=== PATIENT | female | born 1950 | race Caucasian/White ===

== ENCOUNTER 2018-04-09 00:34 | Outpatient (CLI) | payer BC, SELFPAY ==
--- NOTE | 2018-04-09 16:21 | DI.MAMMO_ITS ---
SYMPTOM/DIAGNOSIS: SCREENING, Z12.31 MAMMOGRAM: Mammograms were interpreted according to the usual protocol including computer analysis with CAD system, tomosynthesis and C view imaging. Comparison with prior examinations. Breast density B. No masses or microcalcifications are seen. There is nothing to suggest malignancy. IMPRESSION: Negative mammogram. Routine screening is recommended. Category I. MQSA ASSESSMENT OF FINDINGS: Negative. Category 1. Patient will receive a letter notifying them of these results. BI-RADS category B. There are scattered areas of fibroglandular density.
== END 2018-04-09 00:54 ==
PROVIDERS: PCP Nurse Practitioner Family; Visit Provider Nurse Practitioner Family
DX: Z12.31 Encounter for screening mammogram for malignant neoplasm of breast (principal)
CPT/HCPCS: 77063; 77067

== ENCOUNTER 2018-05-20 02:07 | Outpatient (CLI) | payer BC, SELFPAY ==
[2018-05-20 10:13] LABS: BUN 13 mg/dL (7-18); CREATININE 0.76 mg/dL (0.55-1.02); Calcium 9.5 mg/dL (8.5-10.1); Chloride 103 mmol/L (98-107); Cholesterol 326 mg/dL (50-200); Glucose 104 mg/dL (70-100); HDL Cholesterol 49 mg/dL (40-60); LDL CHOLESTEROL 206 mg/dL (<100); Potassium 3.8 mmol/L (3.5-5.1); Sodium 141 mmol/L (136-145); Triglyceride 321 mg/dL (30-150)
[2018-05-20 10:32] LABS: FREE T4 0.91 ng/dL (0.76-1.46)
== END 2018-05-20 02:27 ==
PROVIDERS: PCP Nurse Practitioner Family; Visit Provider Nurse Practitioner Family
DX: E03.9 Hypothyroidism, unspecified (principal); E78.5 Hyperlipidemia, unspecified; I10 Essential (primary) hypertension
CPT/HCPCS: 36415; 80048; 80061; 83721; 84439; 84443

== ENCOUNTER 2018-08-18 01:35 | Outpatient (CLI) | payer BC, SELFPAY ==
[2018-08-18 10:00] LABS: FREE T4 1.07 ng/dL (0.76-1.46); TSH 1.23 uIU/mL (0.358-3.74)
== END 2018-08-18 01:55 ==
PROVIDERS: PCP Nurse Practitioner Family; Visit Provider Nurse Practitioner Family
DX: E03.9 Hypothyroidism, unspecified (principal)
CPT/HCPCS: 36415; 84439; 84443

== ENCOUNTER 2019-06-14 12:29 | Outpatient (REF) | payer BC, SELFPAY | END 2019-06-14 12:49 | LOC: LBN 12:29 | PROVIDERS: PCP Nurse Practitioner Family; Visit Provider Obstetrics & Gynecology | DX: L02.214 Cutaneous abscess of groin (principal) | CPT/HCPCS: 87077; 87070; 87186; 87205 ==

== ENCOUNTER 2020-01-17 09:38 | Outpatient (REF) | payer OTHER, SELFPAY ==
--- NOTE | 2020-01-17 07:29 | SKI_PTH ---
PATIENT: Odessa Pineda LOC: [facility] U#:[id number] AGE/SX: 69/F ROOM: RE01/17/[address]: Jean Ford DO : 1950 BED: DIS: 01/17/2020 SPEC #: [id number] RECD: 01/17/20 18:31 STATUS: SERGEI REQ #: [id number] SHANIQUE: 01/17/20 07:[address]: Jean Ford DEPT: Surgical Specimen RECD BY: Suyapa Stuart ENTERED: 01/17/20 18:32 SP TYPE: SKI OTHR DR: TOMMY Craft Tissues: 1 - SKIN BIOPSY(SHAVE/PUNCH) Procedures: SKIN LEVEL 4 Comments: [id number]
== END 2020-01-17 09:58 ==
LOC: LBN 09:38
PROVIDERS: PCP Nurse Practitioner Family; Visit Provider Otolaryngology Otolaryngology/Facial Plastic Surgery
DX: L82.0 Inflamed seborrheic keratosis (principal)
CPT/HCPCS: 88305

== ENCOUNTER 2020-01-19 08:18 | Outpatient (CLI) | payer OTHER, SELFPAY ==
--- NOTE | 2020-01-19 09:45 | DI.RAD_ITS ---
EXAM: XR SHOULDER LT COMPLETE 2+V CLINICAL HISTORY: left shoulder pain. TECHNIQUE: 2D digital imaging was performed. COMPARISON: No exams were available for comparison FINDINGS: BONES: No acute fracture is present. No bony destructive lesion is seen. JOINTS: No dislocation present. SOFT TISSUE: Normal. IMPRESSION: Unremarkable radiographs of the left shoulder. DATA REPOSITORY: RADIATION DOSE DELIVERED:
== END 2020-01-19 08:38 ==
PROVIDERS: PCP Nurse Practitioner Family; Visit Provider Student in an Organized Health Care Education/Training Program
DX: M25.512 Pain in left shoulder (principal); M75.102 Unspecified rotator cuff tear or rupture of left shoulder, not specified as traumatic; M75.22 Bicipital tendinitis, left shoulder; M75.52 Bursitis of left shoulder; I10 Essential (primary) hypertension
CPT/HCPCS: 99204; 99215; 73030

== ENCOUNTER 2020-01-27 00:19 | Outpatient (CLI) | payer OTHER, SELFPAY ==
--- NOTE | 2020-01-27 07:15 | DI.MRI_ITS ---
EXAM: MR UPPER JOINT LT WO CLINICAL HISTORY: PAIN, BURSITIS, TENDINITIS, M75.52, M75.22, M75.102. TECHNIQUE: Multiplanar multisequence MRI was performed. COMPARISON: CR XR SHOULDER LT COMPLETE 2+V from 01/19/2020 FINDINGS: AC joint: No significant spurring. There is some fluid in the AC joint. There is fluid in the suba cromial subdeltoid bursa. There is thickening and high signal in the supraspinatus tendon, consist ent with tendinitis. There may be is small focal tear distally. The infraspinatus, subscapularis, t eres minor and biceps tendons appear intact. No gross labral defects are seen. The marrow signal is normal. There is no significant muscle atrophy. IMPRESSION: Supraspinatus tendonitis and subacromial subdeltoid bursitis. Question of a small focal tear distall y in the supraspinatus tendon. DATA REPOSITORY:
== END 2020-01-27 00:39 ==
PROVIDERS: PCP Nurse Practitioner Family; Visit Provider Student in an Organized Health Care Education/Training Program
DX: M75.22 Bicipital tendinitis, left shoulder (principal); M75.52 Bursitis of left shoulder; M75.82 Other shoulder lesions, left shoulder
CPT/HCPCS: 73221

== ENCOUNTER → 2020-02-02 11:30 | Outpatient (BNVA) | payer OTHER, SELFPAY | PROVIDERS: PCP Nurse Practitioner Family; Referring Provider Nurse Practitioner Family; Visit Provider Student in an Organized Health Care Education/Training Program | DX: M75.52 Bursitis of left shoulder (principal); M75.22 Bicipital tendinitis, left shoulder; M75.102 Unspecified rotator cuff tear or rupture of left shoulder, not specified as traumatic; I10 Essential (primary) hypertension | CPT/HCPCS: 20610; 99214; J1030 ==

== ENCOUNTER → 2020-03-29 09:57 | Outpatient (BNVA) | payer OTHER, SELFPAY | PROVIDERS: PCP Nurse Practitioner Family; Visit Provider Student in an Organized Health Care Education/Training Program | DX: M75.52 Bursitis of left shoulder (principal); M75.22 Bicipital tendinitis, left shoulder; M75.102 Unspecified rotator cuff tear or rupture of left shoulder, not specified as traumatic; I10 Essential (primary) hypertension | CPT/HCPCS: 99214 ==

== ENCOUNTER 2020-04-07 02:30 | Outpatient (CLI) | payer OTHER, SELFPAY ==
[2020-04-07 09:18] LABS: ALT 27 U/L (14-59); AST 19 U/L (15-37); Albumin 4.1 g/dL (3.4-5.0); Alkaline Phosphatase 70 U/L (46-116); Anion Gap 8.9 mmol/L (3-11); BUN 10 mg/dL (7-18); Bilirubin, Total 0.7 mg/dL (0.2-1.0); CO2 28.1 mmol/L (21.0-32.0); CREATININE 0.81 mg/dL (0.55-1.02); Calcium 9.6 mg/dL (8.5-10.1); Chloride 101 mmol/L (98-107); FREE T4 1.38 ng/dL (0.76-1.46); Glucose 109 mg/dL (74-106); Potassium 3.8 mmol/L (3.5-5.1); Sodium 138 mmol/L (136-145); Total Protein 7.1 g/dL (6.4-8.2)
[2020-04-07 09:57] LABS: Vitamin B12 988 pg/mL (193-986)
[2020-04-10 07:05] LABS: Vitamin D 25 Total 34.8 ng/ml (30-100)
== END 2020-04-07 02:50 ==
PROVIDERS: PCP Nurse Practitioner Family; Visit Provider Nurse Practitioner Family
DX: E03.9 Hypothyroidism, unspecified (principal); Z01.818 Encounter for other preprocedural examination
CPT/HCPCS: 36415; 80053; 82306; 82607; 83735; 84439; 84443

== ENCOUNTER → 2020-05-03 09:28 | Outpatient (BNVA) | payer OTHER, SELFPAY | PROVIDERS: PCP Nurse Practitioner Family; Referring Provider Nurse Practitioner Family; Visit Provider Student in an Organized Health Care Education/Training Program | DX: M19.012 Primary osteoarthritis, left shoulder (principal); M75.102 Unspecified rotator cuff tear or rupture of left shoulder, not specified as traumatic; M75.22 Bicipital tendinitis, left shoulder; M75.52 Bursitis of left shoulder; I10 Essential (primary) hypertension | CPT/HCPCS: 99214 ==

== ENCOUNTER 2020-05-15 00:38 | Outpatient (CLI) | payer OTHER, SELFPAY ==
--- NOTE | 2020-05-15 16:23 | DI.MAMMO_ITS ---
EXAM: MAMMO SCREENING CLINICAL HISTORY: screening,Z12.39 TECHNIQUE: Mammograms were interpreted according to the usual protocol including computer analysis w [employer] CAD system, tomosynthesis and C-view imaging. COMPARISON: FINDINGS: The breasts are moderate density with fairly symmetrical distribution of fibroglandular tissue. No d ominant mass or clumped microcalcification is identified in either breast. The current examination i s compared with previous examinations including March 2018 and there has been no gross interval c hange in appearance in comparison with the prior studies. IMPRESSION: No specific evidence of malignancy at this time. Routine screening examinations are suggested at ye connie intervals in this age group according to the ACS ACR guidelines. BI-RADS Cat 1 - Negative Breast Density - Category B - Scattered areas of fibroglandular density
== END 2020-05-15 00:58 ==
PROVIDERS: PCP Nurse Practitioner Family; Visit Provider Nurse Practitioner Family
DX: Z12.31 Encounter for screening mammogram for malignant neoplasm of breast (principal)
CPT/HCPCS: 77063; 77067

== ENCOUNTER 2020-05-22 07:23 | Outpatient (CLI) | payer OTHER, SELFPAY ==
[2020-05-24 08:12] LABS: SARS-CoV-2 RNA Not Detected (NotDetected); SARS-CoV-2 RNA Source Nasal/Nares
== END 2020-05-22 07:43 ==
PROVIDERS: PCP Nurse Practitioner Family; Visit Provider Student in an Organized Health Care Education/Training Program
DX: Z11.59 Encounter for screening for other viral diseases (principal); Z01.818 Encounter for other preprocedural examination
CPT/HCPCS: U0003

== ENCOUNTER 2020-05-25 06:08 | Day surgery (SDC) | payer OTHER, SELFPAY ==
[2020-05-25] VITALS (9 sets, daily range): BP systolic 103–164; BP diastolic 55–106; PULSE 71–85; RESP 12–18; TEMP 36.1–36.5; O2SAT 92–99
[2020-05-25] MEDS: Lactated Ringers 1,000 ML 100 ML IV (06:57)
[2020-05-25] MEDS: Bupivacaine 0.5% Pres-Free 30 ML VIAL (07:25)
[2020-05-25] MEDS: Bupivacaine LIPOSOME/PF 133 MG/10 ML VIAL IJ (07:25)
[2020-05-25] MEDS: ceFAZolin 2 GM/50 ML BAG IVPB (08:25)
[2020-05-25] MEDS: EPINEPHrine 30 MG/30 ML VIAL (09:54)
[2020-05-25] MEDS: Bupivacaine 0.25% Pres-Free 30 ML VIAL (09:55)
--- NOTE | 2020-05-25 10:33 | PDOC.DSDIS_ITS ---
Discharge Plan Disposition Patient Disposition: HOME Condition: Stable Discharge Details Reason For Visit: Left shoulder surgery Attending Provider: Veto Waite Primary Care Provider: Ingris Robbins Home Meds and New Rx's Prescriptions: New ibuprofen 800 mg tablet 800 mg PO BID PRN (Reason: pain, moderate) Qty: 60 RF: 0 aspirin 81 mg tablet,delayed release (DR/EC) 81 mg PO DAILY 14 Days Qty: 14 RF: 0 tramadol 50 mg Tablet 50 mg PO Q8H PRN PRN (Reason: severe pain) Qty: 22 RF: 0 ondansetron 4 mg tablet,disintegrating 4 mg PO Q6H PRN (Reason: nausea or vomiting) Qty: 5 RF: 0 Continued Magnesium (oxide/AA chelate) 300 MG capsule 300 mg PO QPM RF: 0 lcdqcsex-jsks-zqgcmd-hyalur ac 1 EACH capsule 1 ea PO DAILY RF: 0 CALCIUM 600 + D TABLET 1 EACH tablet 1 ea PO DAILY RF: 0 omega-3 acid ethyl esters [Lovaza] 1 gram capsule 3 cap PO DAILY Qty: 360 RF: 4 levothyroxine 100 mcg capsule 100 mcg PO DAILY Qty: 90 RF: 4 lisinopril 5 mg tablet 5 mg PO DAILY Qty: 90 RF: 4 ascorbate calcium (vitamin C) 500 mg tablet 2 g PO DAILY RF: 0 zolpidem 5 mg tablet 5 mg PO QHS PRN (Reason: insomnia) Qty: 30 RF: 0 Discharge Instructions Additional Instructions: Surgery: Shoulder arthroscopy with rotator cuff repair, biceps tenodesis, extensive debridement, subacromial decompression, and distal clavicle excision Activity: You should keep your arm at your side in a neutral position at all times except for physical therapy. Do not try to lift or raise your arm using your own muscles. You should use the sling whenever you are out of the house. You may have to adjust the abduction pillow or remove it for comfort. At home it is best to remove the sling and rest the arm on a pillow at your side or support the operative side with your other hand. You may allow the arm to dangle at your side. A physical therapy prescription will be sent electronically to begin in about 2 weeks. Prescriptions: Aspirin 81 mg take 1 daily to prevent a blood clot for 2 weeks Ibuprofen 800 mg take 1 every 12 hours with a meal as needed for moderate pain Tramadol 50 mg take 1 every 6-8 hours as needed for severe pain You may use qata-[id number]-vkplufn Tylenol (acetaminophen) as needed for mild pain. These pain medications may be taken all at once or in different combinations as needed. Ondansetron (Zofran) 4 mg take 1 orally dissolving tablet every 6 hours as needed for nausea or vomiting Also, recommend Colace (docusate) as a stool softener as surgery and pain medicine cause constipation. Dressings: Remove shoulder bandage after 3 days. Leave the sticky Steri-Strips in place until they fall off or remove them after you shower. Cover the incisions with Band-Aids or leave them open to air. the biceps bandage (inside upper arm) is glued on separately. You may leave this one on a few days longer if it is difficult to remove. There is also glue underneath this bandage that can be left in place until it peels off. You may shower after 5 days. Follow-up: 10-[address] Waite You may take off the leg compression stockings this evening at home. You may also leave them on a few days longer if you have a history of leg swelling or edema. Let us know right away if you develop any redness, drainage, fevers, chest pain, or trouble breathing. Do not drink alcohol or drive for at least 24 hours after anesthesia. Please call the office during business hours with any questions or concerns. Referrals: Veto Waite MD [ [facility] STAFF PHYSICIAN] - Discharge Orders Discharge Orders: Discharge Order (Routine); Ordered 05/25/20 Ordered By: Veto Waite DS: Diagnosis Discharge Diagnosis (1) Left rotator cuff tear: Status: Acute (2) Tendinitis of long head of biceps brachii of left shoulder: Status: Acute (3) Bursitis of left shoulder: Status: Acute (4) Arthritis of left acromioclavicular joint: Status: Acute
--- NOTE | 2020-05-25 10:41 | ROE_ITS ---
Date of service: 05/25/20 Time of Service: 10:33 Operative Note Operative Note DATE OF PROCEDURE: 05/25/20 PRE-OP DIAGNOSIS: Left: 1. Rotator cuff tear 2. LHB tendinopathy 3. Bursitis 4. ACJ arthritis POST-OP DIAGNOSIS: same PROCEDURE: Left: 1. Rotator cuff repair, CPT# 93324. This involved repair of the supraspinatus using anchor and suture to reattach the rotator cuff back to the footprint of the greater tuberosity. 2. Open biceps tenodesis, CPT# 50495. This involved reattaching the long head of the biceps tendon to the proximal humerus in the sub-pectoral area of the bicipital groove at the correct tension. 3. Extensive debridement, CPT# 11220. This involved using arthroscopic hand instruments, power instruments, and radiofrequency instruments to release to release the long head of the biceps tendon and debride areas of labral tearing, synovitis, Poth complex/MGHL, and partial leading edge anterior supraspinatus fraying, and mild humeral head cartilage fraying within the glenohumeral joint anteriorly, superiorly and posteriorly. 4. Subacromial decompression with partial acromioplasty, CPT# 00287. This involved using arthroscopic power instruments and a radiofrequency wand to complete a bursectomy and remove bone spurs on the undersurface of the acromion. 5. Arthroscopic distal clavicle excision, CPT# 55967. This involved arthroscopically exposing the underside of the acromioclavicular joint, smoothing out bone spurs, and using a rigo to remove approximately 5 mm of the distal clavicle so there was no bone left engaging the acromion. The assistant corporation counsel was medically required in order to help assist in techniques above, which require positioning the arm, holding the arthroscope, and manipulating multiple instruments and sutures at the same time. This cannot be done without the help of an experienced assistant corporation counsel. SURGEON: Veto Waite IN [employer]ORE MARKETING ASSOCIATE: Gloria Zaman ANESTHESIA: GETA and regional ESTIMATED BLOOD LOSS: 5 PATHOLOGY: none sent Patient was transported to: PACU Patient's condition: stable Implants: Arthrex: 4.75mm SwiveLocks x 1 and unicortical Proximal Biceps Tenodesis Button Indications: The patient was diagnosed with the above conditions and appropriately indicated for surgical intervention. Please see complete medical record for details. Findings: Exam under anesthesia: Nearly full range of motion with approximately 10 to 15 degree limit to forward elevation, which was easily correctable with gentle steady pressure manipulation achieving a nice release. Glenohumeral joint: Generalized grade 1-2 cartilage softening and fraying partial-thickness throughout. Significant anterior synovitis and long head the biceps injection. Superior labral SLAP tear with Poth complex anterior labrum/[facility] L variant. Intact subscapularis. Mild anterior most leading edge supraspinatus fraying without any significant PASTA lesion. Subacromial space: Mild bursitis. Mild subacromial bone spur. Moderate impinging inferior most distal clavicle acromion. Largely intact rotator cuff with fraying and nearly full-thickness tear after debriding the lateral most footprint and gentle probing approximately 1 x 1 cm of the midportion of the supraspinatus. Intact infraspinatus. Procedure Description: In the operating room, general anesthesia was induced. Bilateral shoulders were examined. The patient was positioned in the beachchair position. All bony prominences were well-padded. Preoperative antibiotics were administered. The shoulder was prepped and draped in the usual sterile fashion. The correct patient, procedure, and side of the procedure were all verified prior to incision. Starting through the posterior portal a standard complete diagnostic arthroscopy was performed of the glenohumeral joint including inspection of the long head of the biceps, anterior and superior labrum, subscapularis tendon, supraspinatus and infraspinatus tendons, and axillary recess. The glenoid and humeral head cartilage as well as the posterior labrum were inspected from an anterior viewing portal. Significant findings and interventions noted above. The biceps tendon was released from the superior labrum using arthroscopic scissors. Starting through the posterior portal, the arthroscope was directed into the subacromial space. A lateral 50 yard line lateral portal was created. A combination of power instruments and a radiofrequency ablator were used to debride bursitis anteriorly, posteriorly, and laterally as well as expose and smooth bone spurring on the undersurface of the acromion. The coracoacromial ligament was partially released. The bursectomy was completed viewing laterally and working from posteriorly and the rotator cuff was thoroughly inspected with findings noted above. The anterior portal was redirected towards the undersurface of the AC joint. A shaver and electrocautery device were used to clear soft tissue from the undersurface of the AC joint. A rigo was then inserted and used to remove the distalmost 5 mm of the engaging inferior distal clavicle. Care was taken to alternate between working through the anterior portal and viewing through the anterior portal to ensure that proper amount of bone was removed and there was no engaging bone left behind especially superiorly. Cannulas were inserted at the superior posterior lateral margin of the acromion as well as at the lateral 50 yard line portal. The rotator cuff tear was inspected and debrided of frayed tissue at the lateral greater tuberosity middle supraspinatus margin exposing a nearly full-thickness small supraspinatus tear. The greater was tuberosity cleared of fibrous tissue over the footprint, the bone lightly abraded, and the bursectomy was extended laterally. Rotator cuff retriever was used to confirm appropriate tissue and reduction in mobility. A self retrieving suture passer was used to pass a fiber tape suture in an inverted horizontal mattress medial to the exposed tear while maintaining the articular most intact supraspinatus fibers. A punch was used to localize placement the individual lateral row anchor. The rotator cuff tear was provisionally reduced taking care not to over tension the repair, and the anchor was inserted into the bone completing the repair. The rotator cuff and fixation were inspected through shoulder range of motion and found to be stable and secure. The shoulder was drained of arthroscopic fluid. 10 cc of 0.5% bupivacaine with epinephrine was infiltrated about a 2 to 3 cm longitudinal incision at the inferior margin of the pectoralis major localized over the long head of the biceps tendon. Blunt and sharp dissection were used to expose the tendon in the bicipital groove. The tendon was brought out of the wound and kept off the skin on top of a blue towel. The correct location for sub-pectoral fixation was localized, prepped with a rasp, and then drilled with a 3.2 mm drill pin in a unicortical fashion. Using a fiber loop suture the tendon was prepped from the musculotendinous junction a few centimeters proximal. The excess tendon was amputated. The free suture ends were then passed through the unicortical button implant. The drill pin was removed and the implant was placed into the humeral intramedullary canal. The button was flipped and the sutures were tensioned bringing the tendon down to bone. Tension and fixation were then tested and found to be appropriate. A free nee dle was used to pass suture through the tendon and the free ends of the suture were were tied compressing tendon to bone. The wound was copiously irrigated with normal saline. Subcutaneous tissue was closed using 3-0 Monocryl in a buried interrupted fashion. Skin was closed using 3-0 Monocryl in a buried subcuticular running fashion. Skin glue was applied over the incision. Mastisol was applied about the incision. The incision was covered with Telfa, gauze, and covered with a Tegaderm dressing. All portal sites were copiously irrigated. These incisions were closed using 3- 0 Monocryl in a buried fashion, covered with Mastisol, Steri-Strips, Xeroform, dry gauze, and ABDs. The dressings were covered and secured with Medipore tape. The operative extremity was placed into a sling for immobilization. The patient awoke from anesthesia without complication and was transferred to the recovery room in a stable condition.
== END 2020-05-25 13:31 | disposition home or self-care (01) ==
PROVIDERS: PCP Nurse Practitioner Family; Visit Provider Student in an Organized Health Care Education/Training Program
PROC: (CPT 29805; principal; 2020-05-25 07:30)
PROC: (CPT 23430; 2020-05-25 07:30)
PROC: (CPT 29824; 2020-05-25 07:30)
DX: M75.102 Unspecified rotator cuff tear or rupture of left shoulder, not specified as traumatic (principal); M75.22 Bicipital tendinitis, left shoulder; M19.012 Primary osteoarthritis, left shoulder; I10 Essential (primary) hypertension
CPT/HCPCS: 29827; 23430; 29823; 29826; 29824; 76942; L3670; J0131; J0690; J1100; J1885; J2001; J2250; J2370; J2405; J2704; L3650

== ENCOUNTER → 2020-06-06 10:41 | Outpatient (BNVA) | payer OTHER, SELFPAY | PROVIDERS: PCP Nurse Practitioner Family; Referring Provider Nurse Practitioner Family; Visit Provider Student in an Organized Health Care Education/Training Program | DX: Z47.89 Encounter for other orthopedic aftercare (principal); M19.012 Primary osteoarthritis, left shoulder; M75.22 Bicipital tendinitis, left shoulder; M75.52 Bursitis of left shoulder ==

== ENCOUNTER → 2020-07-12 10:27 | Outpatient (BNVA) | payer OTHER, SELFPAY | PROVIDERS: PCP Nurse Practitioner Family; Visit Provider Student in an Organized Health Care Education/Training Program | DX: Z47.89 Encounter for other orthopedic aftercare (principal); M19.012 Primary osteoarthritis, left shoulder; M75.22 Bicipital tendinitis, left shoulder; M75.52 Bursitis of left shoulder; I10 Essential (primary) hypertension ==

== ENCOUNTER → 2020-08-30 08:57 | Outpatient (BNVA) | payer MEDICARE, SELFPAY | PROVIDERS: PCP Nurse Practitioner Family; Referring Provider Nurse Practitioner Family; Visit Provider Student in an Organized Health Care Education/Training Program | DX: Z47.89 Encounter for other orthopedic aftercare (principal); M19.012 Primary osteoarthritis, left shoulder; M75.22 Bicipital tendinitis, left shoulder; M75.52 Bursitis of left shoulder | CPT/HCPCS: 99213 ==

== ENCOUNTER 2020-10-11 04:24 | Outpatient (CLI) | payer MEDICARE, SELFPAY ==
[2020-10-11 08:54] LABS: Hemoglobin A1C 5.5 % (<5.7)
[2020-10-11 09:17] LABS: Calculated LDL 182 mg/dL (<100); Cholesterol 294 mg/dL (<200); HDL Cholesterol 48 mg/dL (40-60); Triglyceride 320 mg/dL (<150)
== END 2020-10-11 04:25 | disposition home or self-care (01) ==
PROVIDERS: PCP Nurse Practitioner Family; Visit Provider Nurse Practitioner Family
DX: E78.5 Hyperlipidemia, unspecified (principal); R73.03 Prediabetes
CPT/HCPCS: 36415; 80061; 83036

== ENCOUNTER 2021-04-05 13:02 | Outpatient (CLI) | payer MEDICARE, SELFPAY ==
--- NOTE | 2021-04-05 13:00 | RT.EKG_ITS ---
APPROVED REPORT Exam: Resting ECG Reason for Exam: pre op Patient Location: O HR:72 bpm ECG Measurements Heart Rate 72 AXIS IA 155 P 108 QRSd 99 QRS -24 QT 408 T -7 QTc 447 Conclusion Sinus rhythm...normal P axis, V-rate 60- 99 Inc RBBB
== END 2021-04-05 13:03 | disposition home or self-care (01) ==
LOC: DI.CM 13:04
PROVIDERS: PCP Nurse Practitioner Family; Visit Provider Nurse Practitioner Family
DX: Z01.818 Encounter for other preprocedural examination (principal)
CPT/HCPCS: 93010

== ENCOUNTER 2021-07-26 04:24 | Outpatient (CLI) | payer MEDICARE, SELFPAY ==
[2021-07-26 13:41] LABS: Anion Gap 8.7 mmol/L (3-11); BUN 17 mg/dL (7-18); CO2 28.3 mmol/L (21.0-32.0); CREATININE 0.8 mg/dL (0.55-1.02); Calcium 9.5 mg/dL (8.5-10.1); Chloride 103 mmol/L (98-107); FREE T4 1.23 ng/dL (0.76-1.46); Glucose 104 mg/dL (74-106); Potassium 3.8 mmol/L (3.5-5.1); Sodium 140 mmol/L (136-145); TSH 0.47 uIU/mL (0.36-3.74)
== END 2021-07-26 04:25 | disposition home or self-care (01) ==
LOC: LBO 04:24
PROVIDERS: PCP Nurse Practitioner Family; Visit Provider Nurse Practitioner Family
DX: E03.8 Other specified hypothyroidism (principal)
CPT/HCPCS: 36415; 80048; 84439; 84443

== ENCOUNTER 2022-03-26 11:43 | Outpatient (CLI) | payer MEDICARE, SELFPAY ==
--- NOTE | 2022-03-26 11:15 | DI.RAD_ITS ---
Exam(s) XR SHOULDER LT COMPLETE 2+V EXAM: XR SHOULDER LT COMPLETE 2+V CLINICAL HISTORY: LEFT SHOULDER. TECHNIQUE: 2D digital imaging was performed of the left shoulder. Three images were obtained. AP, Y-view and axillary views were obtained. COMPARISON: CR XR SHOULDER LT COMPLETE 2+V from 01/19/2020 FINDINGS: BONES: No acute fracture is present. No bony destructive lesion is seen. There are postsurgical weiss es seen in the proximal humerus. JOINTS: No dislocation present. Mild degenerative changes are seen at the acromioclavicular joint. SOFT TISSUE: Normal. IMPRESSION: No acute abnormality. Postsurgical and degenerative changes in the shoulder. DATA REPOSITORY: RADIATION DOSE DELIVERED:
--- NOTE | 2022-03-26 11:15 | DI.RAD_ITS ---
Exam(s) XR SHOULDER RT COMPLETE 2+V EXAM: XR SHOULDER RT COMPLETE 2+V CLINICAL HISTORY: right shoulder f/u. TECHNIQUE: 2D digital imaging was performed of the right shoulder. Three images were obtained. AP, Y-view and axillary views were obtained. COMPARISON: No exams were available for comparison FINDINGS: BONES: No acute fracture is present. No bony destructive lesion is seen. Postsurgical changes are see n in the proximal right humerus. JOINTS: No dislocation present. Mild degenerative changes are seen at the glenohumeral joint with spu rring seen at both the inferior humeral head and glenoid. SOFT TISSUE: Normal. IMPRESSION: Degenerative and postsurgical changes of the right shoulder. DATA REPOSITORY: RADIATION DOSE DELIVERED:
== END 2022-03-26 11:44 | disposition home or self-care (01) ==
LOC: DIORS 11:43
PROVIDERS: PCP Nurse Practitioner Family; Referring Provider Nurse Practitioner Family; Visit Provider Student in an Organized Health Care Education/Training Program
DX: M75.102 Unspecified rotator cuff tear or rupture of left shoulder, not specified as traumatic (principal); Z98.890 Other specified postprocedural states
CPT/HCPCS: 99214; 73030

== ENCOUNTER → 2022-05-28 10:23 | Outpatient (BNVA) | payer MEDICARE, SELFPAY | PROVIDERS: PCP Nurse Practitioner Family; Referring Provider Nurse Practitioner Family; Visit Provider Student in an Organized Health Care Education/Training Program | DX: M75.102 Unspecified rotator cuff tear or rupture of left shoulder, not specified as traumatic (principal); Z98.890 Other specified postprocedural states | CPT/HCPCS: 99214 ==

== ENCOUNTER → 2022-06-05 01:58 | Outpatient (CLI) | payer MEDICARE, SELFPAY ==
--- NOTE | 2022-06-05 13:05 | DI.MAMMO_ITS ---
Exam(s) MAMMO SCREENING EXAM: MAMMO SCREENING CLINICAL HISTORY: screening,Z12.39 TECHNIQUE: Mammograms were interpreted according to the usual protocol including computer analysis w [employer] CAD system, tomosynthesis and C-view imaging. COMPARISON: 2012 through 2019 FINDINGS: The breasts are composed of scattered fibroglandular densities, Breast Density category B. No suspicious masses or suspicious microcalcifications are seen. No skin thickening or abnormal axillary lymph nodes are seen. There has been no significant change from prior exams. IMPRESSION: BI-RADS Category 1, Negative mammogram Yearly screening mammography is recommended. Breast Density - Category B, scattered fibroglandular densities. A negative radiographic report should not delay biopsy if a dominant or clinically suspicious mass is present. Up to ten percent of cancers are not identified on mammography. A negative report may reinforce clinical impression. Adenosis and dense breasts may obscure an underlying neoplasm. False positive reports average 6 to 10%. Patient will receive a letter notifying them of these results.
== END ==
PROVIDERS: PCP Nurse Practitioner Family; Visit Provider Nurse Practitioner Family
DX: Z12.31 Encounter for screening mammogram for malignant neoplasm of breast (principal)
CPT/HCPCS: 77063; 77067

== ENCOUNTER 2022-07-17 02:32 | Outpatient (CLI) | payer MEDICARE, SELFPAY ==
[2022-07-17 08:27] LABS: HCT 42.4 % (36.0-46.0); MCH 32.1 pg (27.0-33.0); MCHC 35.4 % (32.0-36.0); MCV 91 fL (80-95); MPV 9.4 fL (8.0-11.0); Neutrophils % 51.7; Platelet Count 222 10^3/uL (130-400); RBC 4.67 10^6/uL (3.93-5.22); RDW 12.2 % (11.7-14.6); RDW-SD 40.7 fL; WBC 8.95 10^3/uL (4.4-10.8)
[2022-07-17 08:28] LABS: Abs Immature Grans 0.12 10^3/uL (0.0-0.06); Absolute Basophil Count 0.06 10^3/uL (0.0-0.2); Absolute Eosinophil Count 0.15 10^3/uL (0.0-0.7); Absolute Lymphocyte Count 3.42 10^3/uL (1.2-3.4); Absolute Monocyte Count 0.57 10^3/uL (0.1-0.8); Absolute Neutrophil Count 4.63 10^3/uL (1.2-6.7); Basophils % 0.7; Eosinophils % 1.7; Immature Grans % 1.3; Lymphocytes % 38.2; Monocytes % 6.4
[2022-07-17 09:51] LABS: Anion Gap 8.4 mmol/L (3-11); BUN 13 mg/dL (7-18); CO2 28.6 mmol/L (21.0-32.0); CREATININE 0.9 mg/dL (0.55-1.02); Calcium 9.4 mg/dL (8.5-10.1); Chloride 102 mmol/L (98-107); Estimated GFR 68.35 (mL/min/1.73m2); FREE T4 1.04 ng/dL (0.76-1.46); Glucose 114 mg/dL (74-106); Potassium 3.7 mmol/L (3.5-5.1); Sodium 139 mmol/L (136-145); TSH 3.06 uIU/mL (0.36-3.74)
[2022-07-17 10:29] LABS: Cholesterol 349 mg/dL (<200); Ferritin 114 ng/mL (8-252); HDL Cholesterol 56 mg/dL (40-60); Triglyceride 404 mg/dL (<150); Vitamin B12 675 pg/mL (193-986)
[2022-07-17 10:40] LABS: LDL CHOLESTEROL 179 mg/dL (<100)
== END 2022-07-17 02:33 | disposition home or self-care (01) ==
PROVIDERS: PCP Nurse Practitioner Family; Visit Provider Nurse Practitioner Family
DX: E03.8 Other specified hypothyroidism (principal); E06.3 Autoimmune thyroiditis; E78.2 Mixed hyperlipidemia; D64.9 Anemia, unspecified; G47.00 Insomnia, unspecified; F41.8 Other specified anxiety disorders; I10 Essential (primary) hypertension; Z79.899 Other long term (current) drug therapy
CPT/HCPCS: 36415; 80048; 80061; 83721; 82607; 82728; 84439; 84443; 85025

== ENCOUNTER 2023-07-08 02:48 | Outpatient (CLI) | payer MEDICARE, SELFPAY ==
[2023-07-08 10:41] LABS: BUN 15 mg/dL (7-18); CREATININE 0.9 mg/dL (0.55-1.02); Calcium 9.6 mg/dL (8.5-10.1); Chloride 102 mmol/L (98-107); Estimated GFR 67.92 (mL/min/1.73m2); Glucose 111 mg/dL (74-106); Potassium 3.5 mmol/L (3.5-5.1); Sodium 139 mmol/L (136-145); TSH (W/Ref FT4) 2.56 uIU/mL (0.36-3.74)
== END 2023-07-08 02:49 | disposition home or self-care (01) ==
LOC: LBO 02:48
PROVIDERS: PCP Nurse Practitioner Family; Visit Provider Nurse Practitioner Family
DX: Z00.00 Encounter for general adult medical examination without abnormal findings (principal); E03.9 Hypothyroidism, unspecified
CPT/HCPCS: 36415; 80048; 84443

== ENCOUNTER 2023-11-14 11:29 | Outpatient (CLI) | payer MEDICARE, SELFPAY ==
--- NOTE | 2023-11-14 11:15 | RT.EKG_ITS ---
APPROVED REPORT Exam: Resting ECG Reason for Exam: intermittent SOB Patient Location: O HR:72 bpm ECG Measurements Heart Rate 72 AXIS MN 148 P 37 QRSd 99 QRS -49 QT 403 T 14 QTc 442 Conclusion Sinus arrhythmia...V-rate 68- 79, variation>10% Ventricular premature complex...V complex w/ short R-R interval Probable left atrial enlargement...P >50mS, <-0.10mV V1 LAD, consider left anterior fascicular block...axis(240,-40), S>R II III aVF Baseline wander in lead(s) V5,V6
--- NOTE | 2023-11-14 11:30 | RT.EKG_ITS ---
APPROVED REPORT Exam: Resting ECG Reason for Exam: c/o periodic SOB Patient Location: O HR:68 bpm ECG Measurements Heart Rate 68 AXIS NV 158 P 42 QRSd 96 QRS -55 QT 413 T 14 QTc 440 Conclusion Sinus rhythm...normal P axis, V-rate 50- 99 LAD, consider left anterior fascicular block...axis(240,-40), S>R II III aVF Baseline wander in lead(s) V5
== END 2023-11-14 11:30 | disposition home or self-care (01) ==
PROVIDERS: PCP Nurse Practitioner Family; Visit Provider Nurse Practitioner Family
DX: R06.02 Shortness of breath (principal)
CPT/HCPCS: 93010

== ENCOUNTER → 2023-11-19 02:44 | Outpatient (CLI) | payer MEDICARE, SELFPAY ==
--- NOTE | 2023-11-19 07:30 | DI.RAD_ITS ---
Exam(s) XR CHEST 2V PA LATERAL EXAM: XR CHEST 2V PA LATERAL CLINICAL HISTORY: SOB,r06.02. TECHNIQUE: 2D digital imaging was performed. COMPARISON: No exams were available for comparison FINDINGS: 2 views: Heart size is normal. The mediastinum is not widened. Lungs are clear. No infiltrates nor pleural effusions. IMPRESSION: No acute pulmonary findings. DATA REPOSITORY: RADIATION DOSE DELIVERED:
== END ==
PROVIDERS: PCP Nurse Practitioner Family; Visit Provider Nurse Practitioner Family
DX: R06.02 Shortness of breath (principal)
CPT/HCPCS: 71046

== ENCOUNTER 2023-11-27 01:18 | Outpatient (CLI) | payer MEDICARE, SELFPAY ==
[2023-11-27 11:16] LABS: Abs Immature Grans 0.04 10^3/uL (0.0-0.06); Absolute Basophil Count 0.06 10^3/uL (0.0-0.2); Absolute Eosinophil Count 0.17 10^3/uL (0.0-0.7); Absolute Lymphocyte Count 2.36 10^3/uL (1.2-3.4); Absolute Monocyte Count 0.36 10^3/uL (0.1-0.8); Basophils % 0.8 %; Eosinophils % 2.3 %; HGB 14.8 g/dL (11.2-15.7); Immature Grans % 0.5 %; Lymphocytes % 31.5 %; MCH 32.5 pg (27.0-33.0); MCHC 34.4 % (32.0-36.0); MCV 95 fL (80-95); MPV 9.6 fL (8.0-11.0); Monocytes % 4.8 %; Neutrophils % 60.1 %; Platelet Count 231 10^3/uL (130-400); RBC 4.55 10^6/uL (3.93-5.22); RDW 12.3 % (11.7-14.6); RDW-SD 43.2 fL; WBC 7.49 10^3/uL (4.4-10.8)
[2023-11-27 11:37] LABS: ALT 24 U/L (14-59); AST 22 U/L (15-37); Albumin 4.1 g/dL (3.4-5.0); Alkaline Phosphatase 66 U/L (46-116); BUN 16 mg/dL (7-18); Bilirubin, Total 0.8 mg/dL (0.2-1.0); CREATININE 0.9 mg/dL (0.55-1.02); Calcium 9.4 mg/dL (8.5-10.1); Calculated LDL 210 mg/dL (<100); Chloride 103 mmol/L (98-107); Cholesterol 312 mg/dL (<200); Glucose 99 mg/dL (74-106); HDL Cholesterol 66 mg/dL (40-60); Potassium 3.9 mmol/L (3.5-5.1); Sodium 141 mmol/L (136-145); TSH (W/Ref FT4) 2.88 uIU/mL (0.36-3.74); Total Protein 7.3 g/dL (6.4-8.2); Triglyceride 183 mg/dL (<150)
[2023-11-27 11:40] LABS: Hemoglobin A1C 5.6 % (<5.7)
[2023-11-27 21:01] LABS: Hepatitis C Ab w Rflx HCV PCR Negative (Negative)
== END 2023-11-27 01:19 | disposition home or self-care (01) ==
LOC: LBO 01:18
PROVIDERS: PCP Nurse Practitioner Family; Visit Provider Nurse Practitioner Family
DX: R73.01 Impaired fasting glucose (principal); R06.02 Shortness of breath; E78.5 Hyperlipidemia, unspecified; E03.9 Hypothyroidism, unspecified
CPT/HCPCS: 36415; 80053; 80061; 86803; 83036; 84443; 85025

== ENCOUNTER 2023-12-22 12:42 | Outpatient (REF) | payer MEDICARE, SELFPAY ==
[2023-12-22 15:52] LABS: Bilirubin Negative (Negative); Blood Negative (Negative); Clarity Clear (Clear); Glucose Negative (Negative); Ketones Negative (Negative); Leukocyte Esterase Negative (Negative); Nitrite Negative (Negative); Urobilinogen 0.2 mg/dL (Up to 0.2)
== END 2023-12-22 12:43 | disposition home or self-care (01) ==
LOC: LBN 12:42
PROVIDERS: PCP Nurse Practitioner Family; Visit Provider Nurse Practitioner Family
DX: N30.90 Cystitis, unspecified without hematuria (principal)
CPT/HCPCS: 81003

== ENCOUNTER 2024-03-31 18:32 | Outpatient (REF) | payer MEDICARE, SELFPAY ==
[2024-03-31 13:53] LABS: Bilirubin Negative (Negative); Blood Small (Negative); Clarity Sl Cloudy (Clear); Glucose Negative (Negative); Ketones Negative (Negative); Leukocyte Esterase Negative (Negative); Nitrite Negative (Negative); Urobilinogen 0.2 mg/dL (Up to 0.2)
[2024-03-31 14:11] LABS: Bacteria Rare HPF (Negative); C & S Indicated? C&S Done As Ordered; Casts Negative LPF (Negative); Crystals Negative HPF (Negative); Epithelial Cells Rare HPF (Negative); Mucus Trace (Negative); WBC 0-2 HPF (0-5)
== END 2024-03-31 18:33 | disposition home or self-care (01) ==
LOC: LBN 18:32
PROVIDERS: PCP Nurse Practitioner Family; Visit Provider Nurse Practitioner Family
DX: N30.90 Cystitis, unspecified without hematuria (principal); R30.0 Dysuria
CPT/HCPCS: 81003; 81015; 87086

== ENCOUNTER 2024-04-13 10:38 | Outpatient (REF) | payer MEDICARE, SELFPAY ==
[2024-04-13 13:18] LABS: Bilirubin Negative (Negative); Blood Small (Negative); Clarity Clear (Clear); Glucose Negative (Negative); Ketones Negative (Negative); Leukocyte Esterase Small (Negative); Nitrite Negative (Negative); Urobilinogen 0.2 mg/dL (Up to 0.2)
[2024-04-13 13:26] LABS: Bacteria Few HPF (Negative); C & S Indicated? Yes; Casts Negative LPF (Negative); Crystals Negative HPF (Negative); Epithelial Cells Rare HPF (Negative); Mucus Negative (Negative)
== END 2024-04-13 10:39 | disposition home or self-care (01) ==
LOC: LBN 10:38
PROVIDERS: PCP Nurse Practitioner Family; Visit Provider Nurse Practitioner Family
DX: R30.0 Dysuria (principal); R39.9 Unspecified symptoms and signs involving the genitourinary system
CPT/HCPCS: 87077; 81003; 81015; 87086; 87186; 87480; 87510; 87660

== ENCOUNTER 2024-04-16 01:15 | Outpatient (CLI) | payer MEDICARE, SELFPAY ==
--- NOTE | 2024-04-16 06:45 | DI.CT_ITS ---
Exam(s) CT SINUS WO EXAM: CT SINUS WO CLINICAL HISTORY: Chronic sinus symptoms,CHRONIC RHINITIS,J31.0. Evaluate for sinusitis. TECHNIQUE: Imaging Protocol: Axial computed tomography images with coronal and sagittal reformatted images were created and reviewed. COMPARISON: No exams were available for comparison FINDINGS: AXIAL IMAGES: Frontal sinuses: Normally aerated. Ethmoid air cells: Normally aerated. Maxillary sinuses: There is mucous retention cyst or polyp in the left maxillary sinus. Maxillary si nuses are otherwise clear. Sphenoid sinus: Normally aerated. Ostiomeatal complexes: Patent. Osseous nasal septum: The nasal septum mildly deviates to the right. Visualized regional soft tissues: No acute findings. Orbits: Unremarkable. Bones: Unremarkable. Mastoid Air Cells: Normally aerated. IMPRESSION: 1. There is a mucous retention cyst or polyp in the left maxillary sinus. 2. The remaining visualized paranasal sinuses are clear. RADIATION DOSE DELIVERED: 104.07mGy.cm Total DLP 104.07mGy.cm Total DLP DATA REPOSITORY: All CT scans at this facility are submitted to the National Radiology Data Registry (NRDR) Dose Index Registry (DIR) with the [employer] (A[employer]). RADIATION OPTIMIZATION: All CT scans at this facility use at least one of these dose optimization te chniques: automated exposure control; mA and/or kV adjustment per patient size (includes targeted exa ms where dose is matched to clinical indication); or iterative reconstruction.
== END 2024-04-16 01:35 ==
LOC: DI 01:15
PROVIDERS: PCP Nurse Practitioner Family; Visit Provider Nurse Practitioner Family
DX: J31.0 Chronic rhinitis (principal)
CPT/HCPCS: 70486

== ENCOUNTER 2024-05-31 15:11 | Outpatient (REF) | payer MEDICARE, SELFPAY ==
[2024-05-31 13:49] LABS: Bilirubin Negative (Negative); Blood Small (Negative); Clarity Clear (Clear); Glucose Negative (Negative); Ketones Negative (Negative); Leukocyte Esterase Negative (Negative); Nitrite Negative (Negative); Urobilinogen 0.2 mg/dL (Up to 0.2)
[2024-05-31 14:21] LABS: Bacteria Negative HPF (Negative); C & S Indicated? No; Casts Negative LPF (Negative); Crystals Negative HPF (Negative); Epithelial Cells Rare HPF (Negative); Mucus Negative (Negative); RBC 0-2 HPF (0-2); WBC Negative HPF (0-5)
== END 2024-05-31 15:12 | disposition home or self-care (01) ==
LOC: LBN 15:11
PROVIDERS: PCP Nurse Practitioner Family; Visit Provider Nurse Practitioner Family
DX: N30.90 Cystitis, unspecified without hematuria (principal)
CPT/HCPCS: 81003; 81015

== ENCOUNTER 2024-06-08 01:52 | Outpatient (CLI) | payer MEDICARE, SELFPAY | END 2024-06-08 02:12 | LOC: DI 01:52 | PROVIDERS: PCP Nurse Practitioner Family; Visit Provider Nurse Practitioner Family | DX: Z12.31 Encounter for screening mammogram for malignant neoplasm of breast (principal); R92.323 Mammographic fibroglandular density, bilateral breasts | CPT/HCPCS: 77063; 77067 ==

== ENCOUNTER 2024-12-10 01:09 | Outpatient (CLI) | payer MEDICARE, SELFPAY ==
--- NOTE | 2025-01-09 08:58 | W.PFT ---
Date of service: 12/10/24 Time of Service: 14:54 Pulmonary Function Test Result Indications: Dyspnea Interpretation Spirometry: No airflow limitation. Lung Volumes: Normal lung volumes Diffusion Capacity: Normal diffusion Airway Pressure: Normal airways resistance Impression Normal pulmonary function testing Clinical Correlation therefore is recommended.
== END 2024-12-10 01:10 | disposition home or self-care (01) ==
LOC: RT 01:09
PROVIDERS: PCP Nurse Practitioner Family; Visit Provider Student in an Organized Health Care Education/Training Program
DX: R06.00 Dyspnea, unspecified (principal)
CPT/HCPCS: 94726; 94729; 94010

== ENCOUNTER 2024-12-10 19:06 | Outpatient (CLI) | payer MEDICARE, SELFPAY ==
[2024-12-10 17:05] LABS: TSH (W/Ref FT4) 4.87 uIU/mL (0.36-3.74)
[2024-12-10 17:47] LABS: FREE T4 1.22 ng/dL (0.76-1.46)
== END 2024-12-10 19:07 | disposition home or self-care (01) ==
LOC: LBO 19:06
PROVIDERS: PCP Nurse Practitioner Family; Visit Provider Family Medicine
DX: E06.3 Autoimmune thyroiditis (principal); E03.8 Other specified hypothyroidism; E03.9 Hypothyroidism, unspecified
CPT/HCPCS: 36415; 84439; 84443

== ENCOUNTER 2024-12-16 02:36 | Outpatient (CLI) | payer MEDICARE, SELFPAY ==
--- NOTE | 2024-12-16 07:15 | DI.US_ITS ---
APPROVED REPORT EXAM: Comprehensive 2D, Doppler, and color-flow Echocardiogram Patient Location: Out-Patient Business [facility] Administrator: Dafne Kelley RDCS (AE) Indications: Chronic dyspnea Other Information Study Quality: Adequate Conclusion Normal left ventricular wall thickness and chamber size. Ejection fraction is 60%. Wall motion is n ormal Normal right ventricular size and function Both atria are normal in size Aortic valve is mildly sclerotic and trileaflet without stenosis or regurgitation Normal mitral valve with mild regurgitation Mild tricuspid regurgitation; estimated right ventricular systolic pressure is 26 mmHg Borderline dilated ascending aorta Wall motion Left Ventricle The left ventricle is normal size. The left ventricular systolic function is normal. The left ventric ular ejection fraction is within the normal range. Arrhythmia throughout exam. There is normal left v entricular wall thickness. There is normal LV segmental wall motion. There is no ventricular septal d efect visualized. LVEF is 60%. Right Ventricle The right ventricle is normal size. The right ventricular systolic function is normal. Atria The left atrium size is normal. The right atrium size is normal. The interatrial septum is intact wit h no evidence for an atrial septal defect. Aortic Valve The Aortic valve is mildly sclerotic. Aortic valve is trileaflet. There is no aortic valvular stenosi s. No aortic regurgitation is present. Mitral Valve The mitral valve is normal in structure. No evidence of mitral valve stenosis. Mild mitral regurgitat ion. Tricuspid Valve The tricuspid valve is normal in structure. There is no tricuspid valve stenosis. Mild tricuspid re gurgitation. The RVSP is 25.6 mmHg. Pulmonic Valve The pulmonary valve is normal in structure. There is no pulmonic valvular stenosis. Trace pulmonic re gurgitation. Great Vessels The aortic root is normal in size. The ascending aorta is mildly dilated. Aortic arch is not well vis ualized. IVC is normal in size and collapses >50% with inspiration. Pericardium There is no pericardial effusion. 2D Dimensions IVSD d PLAX 0.91 cm F: 0.6-1.0 Ao Root d 3.27 cm F: 2.7 - 3.3 LVPW d PLAX 0.91 cm F: 0.6 - 1.0 Ao Asc Diam d 3.42 cm F: 2.3 - 3.1 LVID d PLAX 4.46 cm F: 3.8 - 5.2 LVDs 3.14 cm F: 2.2 - 3.5 LV EF Teichholz 56.9 % FS 29.70 % LV EDV (Teich) 90.7 mL LV ESV (Teich) 39.1 mL M-Mode TAPSE 2.39 cm (M/F) >1.7 Auto EF LV EDV A4C 76.4 mL LV EDV A2C 70.0 mL LV EDV BP 73.8 mL LV ESV A4C 29.0 mL LV ESV A2C 26.2 mL LV ESV BP 27.4 mL LVEF(%) A4C 62.0 % LVEF(%) A2C 62.6 % LVEF(%) BP 62.9 % LV SV A4C 47.4 ml LV SV A2C 43.8 ml LV SV BP 46.4 ml LV CO A4C 3.1 L/min LV CO A2C 3.0 L/min LV CO BP 3.1 L/min HR A4C 66.06 BPM HR A2C 68.31 BPM LV EDV Index (BP) LA Volume LA Length A4C 4.0 cm LA Length A2C 4.6 cm LA Area A4C s 13.13 cm2 LA Area A2C s 13.34 cm2 LA Vol A4C A-L 36.74 mL LA Vol A2C A-L 32.50 mL LA Vol Biplane A-L 37.3 mL LA Vol/BSA A4C A-L LA Vol/BSA A2C A-L LA Vol/BSA BP A-L 22.2 mL/m2 LA Vol A4C MOD 34.3 mL LA Vol A2C MOD 30.8 mL LA Vol BP MOD 35.0 mL RA Volume RA Area A4C 9.8 cm2 RA ESV A4C (A-L) 19.9mL RA Vol/BSA A4C A-L RA Length A4C 4.1 cm RA ESV A4C (MOD) 19.1mL LV Diastology MV E' medial 0.063 (>0.07 m/s) MV E Vmax 0.56 (0.4-1.3 m/s) MV E/E' MED 8.96 (<14) MV A Vmax 0.80 (0.4-1.3 m/s) MV E' lateral 0.085 (>0.1 m/s) E/A Ratio 0.7 MV E/E' LAT 6.61 (<14) MV E' Average 0.074 m/s MV E/E'(average) 7.60 Aortic Valve AoV Vmax 1.58 m/s LVOT Vmax 1.01 m/s AoV Peak Grad 10.0 mmHg LVOT Peak Grad 4.1 mmHg AoV Area (Vmax) 1.94 cm2 LVOT VTI 0.240 m AoV VTI 0.342 m LVOT Mean Grad 2.2 mmHg AoV Mean Nikunj. 1.23 m/s LVOT SV 72.70 mL AoV Mean Grad 6.5 mmHg LVOT Diam s 1.95 cm AoV Area (VTI) 2.13 cm2 AV Regurg Peak Gr. 10.05 mmHg Velocity Ratio 0.64 Mitral Valve MV DT 252 (160-240 msec) MV Vmax TIPS 0.93 m/s MV Mean Grad 1.0 (<2mmHg) MV VTI 0.225 m Pulmonary Valve PV Vmax 0.86 (0.5-1.5 m/s) RVOT Vmax 0.62 m/s PV Peak Grad 2.9 mmHg RVOT Peak Gr. 1.6 mmHg PV Mean Nikunj 0.53 m/s RVOT VTI 0.141 m PV Mean Grad 1.3 mmHg RVOT Mean Gr. 0.8 mmHg Tricuspid Valve RA Pressure 3.00 mmHg TR Vmax 2.37 m/s TV S' 0.19 m/s TR Peak Grad 22.5 mmHg RVSP (TR) 25.6 mmHg
== END 2024-12-16 02:56 ==
LOC: DI 02:36
PROVIDERS: PCP Nurse Practitioner Family; Visit Provider Internal Medicine Cardiovascular Disease
DX: R06.00 Dyspnea, unspecified (principal); I36.1 Nonrheumatic tricuspid (valve) insufficiency
CPT/HCPCS: 93306

== ENCOUNTER 2025-03-11 14:02 | Outpatient (CLI) | payer MEDICARE, SELFPAY ==
[2025-03-11 12:31] LABS: Anion Gap 10.3 mmol/L (3-11); BUN 15 mg/dL (7-18); CO2 25.7 mmol/L (21.0-32.0); Calcium 9.4 mg/dL (8.5-10.1); Chloride 100 mmol/L (98-107); Estimated GFR 77.27 (mL/min/1.73m2); Glucose 107 mg/dL (74-106); Potassium 4.1 mmol/L (3.5-5.1); Sodium 136 mmol/L (136-145); TSH (W/Ref FT4) 6.63 uIU/mL (0.36-3.74)
== END 2025-03-11 14:03 | disposition home or self-care (01) ==
LOC: LBO 14:03
PROVIDERS: PCP Nurse Practitioner Family; Visit Provider Nurse Practitioner Family
DX: E03.8 Other specified hypothyroidism (principal); E06.3 Autoimmune thyroiditis; I10 Essential (primary) hypertension
CPT/HCPCS: 36415; 80048; 84439; 84443

== ENCOUNTER 2025-05-19 14:15 | Outpatient (CLI) | payer MEDICARE, SELFPAY ==
[2025-05-19 14:53] LABS: TSH (W/Ref FT4) 0.64 uIU/mL (0.36-3.74)
== END 2025-05-19 14:16 | disposition home or self-care (01) ==
LOC: LBO 14:16
PROVIDERS: PCP Nurse Practitioner Family; Visit Provider Nurse Practitioner Family
DX: E03.8 Other specified hypothyroidism (principal); E06.3 Autoimmune thyroiditis
CPT/HCPCS: 36415; 84443

== ENCOUNTER 2025-05-31 00:43 | Outpatient (CLI) | payer MEDICARE, SELFPAY ==
[2025-05-31 14:33] LABS: TSH (W/Ref FT4) 0.18 uIU/mL (0.55-4.78)
== END 2025-05-31 00:44 | disposition home or self-care (01) ==
LOC: LBO 00:43
PROVIDERS: PCP Nurse Practitioner Family; Visit Provider Nurse Practitioner Family
DX: E03.8 Other specified hypothyroidism (principal); E06.3 Autoimmune thyroiditis
CPT/HCPCS: 36415; 84439; 84443